=== PATIENT | male | born 1960 | race Caucasian/White ===

== ENCOUNTER 2019-02-09 19:09 | Emergency (ER) | payer MEDICAID, MEDICARE ==
[~2019-02-09] VITALS: Ht 185.4 cm; Wt 310.0 kg
[~2019-02-09 19:09] MED LIST: ESCI10TA PO; INSU100V36 SQ; LANTUS SUBCUT; LISI-600 PO; SERT25TA PO
[2019-02-09] MEDS ORDERED: normal saline 1000ML IV soln IVB ONE (19:15)
[2019-02-09 19:47] LABS: BASOPHILS # (AUTO) 0.1 X10'3 (0-0.2); BASOPHILS % (AUTO) 0.7 % (0-1); EOSINOPHILS # (AUTO) 0.4 X10'3 (0-0.9); EOSINOPHILS % (AUTO) 3.5 % (0-6); HEMATOCRIT 38.7 % (42.0-52.0); HEMOGLOBIN 12.9 g/dl (14.0-17.9); LYMPHOCYTES # (AUTO) 1.3 X10'3 (1.1-4.8); LYMPHOCYTES % (AUTO) 11.4 % (21-51); MEAN CORPUSCULAR HEMOGLOBIN 32.2 PG (27.0-31.0); MEAN CORPUSCULAR HGB CONC 33.3 g/dL (33.0-36.5); MEAN CORPUSCULAR VOLUME 96.7 FL (78-98); MEAN PLATELET VOLUME 7.5 FL (7.4-10.4); MONOCYTES # (AUTO) 0.9 X10'3 (0-0.9); NEUTROPHILS # (AUTO) 8.9 X10'3 (1.8-7.7); NEUTROPHILS % (AUTO) 76.4 % (42-75); PLATELET COUNT 257 X10'3 (140-440); RED BLOOD COUNT 4.01 X10'6 (4.70-6.10); RED CELL DISTRIBUTION WIDTH 14.9 % (11.5-14.5); WHITE BLOOD COUNT 11.7 X10'3 (4.5-11.0)
[2019-02-09 19:56] LABS: ALANINE AMINOTRANSFERASE 32 U/L (12-78); ALBUMIN 3.8 G/DL (3.4-5.0); ALBUMIN/GLOBULIN RATIO 0.7 (1.1-1.5); ALKALINE PHOSPHATASE 66 IU/L (46-116); ANION GAP 9 (8-16); ASPARTATE AMINO TRANSFERASE 25 U/L (10-37); BILIRUBIN,TOTAL 0.5 MG/DL (0.1-1.0); BLOOD UREA NITROGEN 28 MG/DL (7-18); CALCIUM 8.5 MG/DL (8.5-10.1); CHLORIDE 103 MMOL/L (99-107); GLUCOSE 72 MG/DL (70-104); MAGNESIUM 2.1 MG/DL (1.5-2.4); PHOSPHORUS 3.4 MG/DL (2.3-4.5); POTASSIUM 3.3 MMOL/L (3.5-5.1); SODIUM 137 MMOL/L (135-145); TOTAL CARBON DIOXIDE 25.3 MMOL/L (24-32); TOTAL PROTEIN 9.1 G/DL (6.4-8.2); eGFR 35 ML/MIN
--- NOTE | 2019-02-09 20:38 | NUR ---
FOR [facility] CALL DOUG MADDOX AT [phone]
[2019-02-09 21:18] VITALS: BP 120/52
[2019-02-09] MEDS ORDERED: POTA20TA19 PO (21:38)
== END 2019-02-09 22:15 | disposition home or self-care (01) ==
LOC: ER 19:09
DX: E11.649 Type 2 diabetes mellitus with hypoglycemia without coma (principal); E87.6 Hypokalemia; E86.0 Dehydration; Z98.890 Other specified postprocedural states; Z89.511 Acquired absence of right leg below knee; Z79.899 Other long term (current) drug therapy; Z79.4 Long term (current) use of insulin
CPT/HCPCS: 36415; 80053; 82948; 83735; 84100; 85025; 93005; 99284; J7030; 96360

== ENCOUNTER 2019-03-30 14:27 | Inpatient (IN) | payer MEDICARE, MEDICAID ==
[~2019-03-30] VITALS: Ht 185.4 cm; Wt 157.0 kg
--- NOTE | 2019-03-30 15:47 | NUR ---
RADIOLOGY AT BEDSIDE
[2019-03-30 16:03] LABS: BASOPHILS # (AUTO) 0.2 X10'3 (0-0.2); BASOPHILS % (AUTO) 0.9 % (0-1); EOSINOPHILS # (AUTO) 0.3 X10'3 (0-0.9); EOSINOPHILS % (AUTO) 1.8 % (0-6); HEMATOCRIT 32.3 % (42.0-52.0); HEMOGLOBIN 11.2 g/dl (14.0-17.9); LYMPHOCYTES # (AUTO) 1.3 X10'3 (1.1-4.8); MEAN CORPUSCULAR HEMOGLOBIN 32.4 PG (27.0-31.0); MEAN CORPUSCULAR HGB CONC 34.6 g/dL (33.0-36.5); MEAN CORPUSCULAR VOLUME 93.5 FL (78-98); MEAN PLATELET VOLUME 6.7 FL (7.4-10.4); MONOCYTES % (AUTO) 5.5 % (2-12); NEUTROPHILS # (AUTO) 15.5 X10'3 (1.8-7.7); NEUTROPHILS % (AUTO) 84.8 % (42-75); PLATELET COUNT 508 X10'3 (140-440); RED BLOOD COUNT 3.46 X10'6 (4.70-6.10); RED CELL DISTRIBUTION WIDTH 14.5 % (11.5-14.5); WHITE BLOOD COUNT 18.3 X10'3 (4.5-11.0)
[2019-03-30 16:12] LABS: ANION GAP 8 (8-16); BLOOD UREA NITROGEN 34 MG/DL (7-18); BUN/CREATININE RATIO 14.3 (5.4-32.0); CALCIUM 9.4 MG/DL (8.5-10.1); CHLORIDE 94 MMOL/L (99-107); CREATININE 2.38 MG/DL (0.60-1.10); GLUCOSE 127 MG/DL (70-104); POTASSIUM 4.2 MMOL/L (3.5-5.1); SODIUM 131 MMOL/L (135-145); TOTAL CARBON DIOXIDE 28.8 MMOL/L (24-32); eGFR 28 ML/MIN
[2019-03-30] MEDS ORDERED: clindamycin 600mg/D5W 50ml 50 ML IV ONE (16:30)
[2019-03-30] MEDS: normal saline 1000ml 1,000 ML IV SCH ×2 (17:12→23:03)
[2019-03-30] MEDS ORDERED: HYDROcodone/acetaminophen 5mg/325mg tablet PO PRN (17:15)
[2019-03-30] MEDS ORDERED: magnesium 2GM in 50ml NS 50 ML IV PRN (17:15)
[2019-03-30] MEDS ORDERED: HYDROcodone/acetaminophen 10/325mg tab PO PRN (17:15)
[2019-03-30] MEDS ORDERED: magnesium 4gm in 100ml NS 100 ML IV PRN (17:15)
[2019-03-30] MEDS ORDERED: dextrose ORAL solution 15 GM/59 ML bottle PO PRN ×2 (17:15)
[2019-03-30] MEDS ORDERED: potassium CL 10mEq/100ml bag 100 ML IV PRN ×2 (17:15)
[2019-03-30] MEDS ORDERED: glucagon, human recombinant 1mg kit SUBCUT PRN (17:15)
[2019-03-30] MEDS ORDERED: MESSAGE TO PHARMACY PO ONE (17:15)
[2019-03-30] MEDS ORDERED: ondansetron/PF 4mg/2ml inj IV PRN (17:15)
[2019-03-30] MEDS ORDERED: acetaminophen 325mg tablet PO PRN ×2 (17:15)
[2019-03-30] MEDS ORDERED: dextrose 50%-water 50ml dispensing syringe IV PRN ×2 (17:15)
[2019-03-30] MEDS ORDERED: magnesium Cl slow-release 64mg tablet PO PRN (17:15)
[2019-03-30] MEDS ORDERED: potassium Cl 20 mEq SR tablet PO PRN ×2 (17:15)
[2019-03-30] MEDS ORDERED: morphine 2 MG/ML inj. syringe IV PRN ×2 (17:15)
[2019-03-30] MEDS ORDERED: acetylcysteine 200 MG/ml 4ml vial PO ONE (17:45)
--- NOTE | 2019-03-30 18:00 | NUR ---
Spoke to Dr. Sue to clarify that she wants to keep IV fluid rate at 100mL/hr with pt's CHF history and Lasix home medication. Dr. Sue states that she does want the pt on the full amount of ordered IV fluid rate.
[2019-03-30] MEDS ORDERED: LABE100T5 PO (18:11)
[2019-03-30] MEDS ORDERED: MAGN500C16 PO (18:11)
[2019-03-30] MEDS ORDERED: HYDR-4069 PO (18:11)
[2019-03-30] MEDS ORDERED: MULT-933 PO (18:11)
[2019-03-30] MEDS ORDERED: GABA-532 PO (18:11)
[2019-03-30] MEDS ORDERED: RIVA20TA PO (18:11)
[2019-03-30] MEDS ORDERED: FLO0.4C PO (18:11)
[2019-03-30] MEDS ORDERED: AMLO2.5T2 PO (18:11)
[2019-03-30] MEDS ORDERED: ROPI1TAB4 PO (18:11)
[2019-03-30] MEDS ORDERED: MONT10TA21 PO (18:11)
[2019-03-30] MEDS ORDERED: BUPR150T8 PO (18:11)
[2019-03-30] MEDS ORDERED: POTA10TA10 PO (18:11)
[2019-03-30] MEDS ORDERED: PRAZ1CAP5 PO (18:11)
[2019-03-30] MEDS ORDERED: FURO80TA3 PO (18:11)
[2019-03-30 18:15] LABS: CLARITY,URINE CLEAR (Clear); COLOR,URINE YELLOW (Yellow); GLUCOSE, URINE NEGATIVE (Neg); KETONES,URINE NEGATIVE (Neg); LEUKOCYTE ESTERASE ,URINE NEGATIVE (Neg); NITRITES, URINE NEGATIVE (Neg); OCCULT BLOOD,URINE MODERATE (Neg); PROTEIN,URINE 30 mg/dl (Neg); UROBILINOGEN,URINE 0.2 E.U/dL (0.2-1.0)
[2019-03-30] MEDS ORDERED: LANTUS SQ ×2 (18:21)
[2019-03-30] MEDS ORDERED: INSU100C10 SQ (18:21)
[2019-03-30 18:22] LABS: C-REACTIVE PROTEIN 2.82 MG/DL (0.0-0.5)
[2019-03-30 18:22] LABS: UA COLLECTION TYPE URINAL
[2019-03-30 18:23] LABS: BACTERIA,URINE NONE SEEN /HPF (Neg); SQUAMOUS EPITHELIAL CELL,UR FEW /LPF (FEW); WBC,URINE NONE SEEN /HPF (0-4)
[2019-03-30 18:50] VITALS: BP 141/75
[2019-03-30] MEDS: buPROPion SR 150mg tablet PO SCH (20:00)
[2019-03-30] MEDS: docusate sod 100mg capsule PO SCH (20:00)
[2019-03-30] MEDS: clindamycin 600mg/D5W 50ml 50 ML IV SCH (20:00)
[2019-03-30] MEDS ORDERED: heparin, porcine 5000 units/ml vial SQ SCH (20:00)
[2019-03-30] MEDS ORDERED: pneumococcal 23-VAL P-sac vacc 25 mcg/0.5ml vial IMVAC ONE (20:05)
[2019-03-30] MEDS ORDERED: FLU VACC QS2019-20 36MOS UP/PF 60 MCG/0.5 ML SYRINGE IMVAC ONE (20:10)
[2019-03-30] MEDS: hydrALAZINE 25 MG tablet PO SCH (20:44)
[2019-03-30] MEDS: ciprofloxacin lact 400MG/200ML 200 ML IV SCH (20:57)
[2019-03-30] MEDS ORDERED: temazepam 15mg capsule PO PRN (21:00)
[2019-03-30 22:00] VITALS: BP 132/73
[2019-03-30] MEDS: ROPINIRole 1mg tablet PO SCH (22:08)
[2019-03-30] MEDS: gabapentin 300mg capsule PO SCH (22:08)
[2019-03-30] MEDS: montelukast 10mg tablet PO SCH (22:09)
[2019-03-30] MEDS: labetalol 100mg tablet PO SCH (22:09)
[2019-03-30] MEDS: tamsulosin 0.4mg capsule PO SCH (22:15)
[2019-03-30] MEDS: insulin Lispro (HumaLOG) vial - multi-dose SQ SCH (22:31)
[2019-03-30] MEDS: insulin glargine (Lantus) pen - multi-dose SQ SCH (22:38)
[2019-03-31] MEDS: rivaroxaban 20mg tablet PO SCH ×2 (00:09→20:30)
[2019-03-31 03:00] VITALS: BP 143/72
[2019-03-31] MEDS: clindamycin 600mg/D5W 50ml 50 ML IV SCH ×4 (03:14→20:27)
[2019-03-31] MEDS: hydrALAZINE 25 MG tablet PO SCH ×4 (03:20→20:29)
[2019-03-31 06:15] LABS: BASOPHILS # (AUTO) 0.1 X10'3 (0-0.2); BASOPHILS % (AUTO) 1.2 % (0-1); EOSINOPHILS # (AUTO) 0.3 X10'3 (0-0.9); HEMATOCRIT 30.5 % (42.0-52.0); HEMOGLOBIN 10.8 g/dl (14.0-17.9); LYMPHOCYTES # (AUTO) 1.3 X10'3 (1.1-4.8); LYMPHOCYTES % (AUTO) 11.3 % (21-51); MEAN CORPUSCULAR HEMOGLOBIN 32.8 PG (27.0-31.0); MEAN CORPUSCULAR HGB CONC 35.6 g/dL (33.0-36.5); MEAN PLATELET VOLUME 6.7 FL (7.4-10.4); MONOCYTES % (AUTO) 8.7 % (2-12); NEUTROPHILS # (AUTO) 8.7 X10'3 (1.8-7.7); NEUTROPHILS % (AUTO) 75.8 % (42-75); PLATELET COUNT 474 X10'3 (140-440); RED BLOOD COUNT 3.31 X10'6 (4.70-6.10); RED CELL DISTRIBUTION WIDTH 14.6 % (11.5-14.5); WHITE BLOOD COUNT 11.4 X10'3 (4.5-11.0)
[2019-03-31 06:17] LABS: ALBUMIN 2.8 G/DL (3.4-5.0); ANION GAP 9 (8-16); BLOOD UREA NITROGEN 33 MG/DL (7-18); BUN/CREATININE RATIO 14.7 (5.4-32.0); CALCIUM 9.3 MG/DL (8.5-10.1); CHLORIDE 96 MMOL/L (99-107); CREATININE 2.25 MG/DL (0.60-1.10); GLUCOSE 178 MG/DL (70-104); MAGNESIUM 2.2 MG/DL (1.5-2.4); SODIUM 133 MMOL/L (135-145); TOTAL CARBON DIOXIDE 27.8 MMOL/L (24-32); eGFR 30 ML/MIN
--- NOTE | 2019-03-31 06:34 | NUR ---
Patient in room [facility] 4015. I have received report from [place] and had the opportunity to ask questions and assume patient care.
[2019-03-31] MEDS: normal saline 1000ml 1,000 ML IV SCH ×5 (07:41→23:07)
[2019-03-31] MEDS: K and/or MAG REPLACEMENT MC SCH (08:00)
[2019-03-31] MEDS: docusate sod 100mg capsule PO SCH ×2 (08:00→20:30)
--- NOTE | 2019-03-31 08:45 | NUR ---
Patient in room [facility]TH[facility] 4015. I have received report from RODERICK ALDRICH and had the opportunity to ask questions and assume patient care.
[2019-03-31] MEDS: insulin Lispro (HumaLOG) vial - multi-dose SQ SCH ×3 (08:58→18:34)
[2019-03-31] MEDS: magnesium oxide 400mg tablet PO SCH ×2 (09:20)
[2019-03-31] MEDS: prazosin 1mg capsule PO SCH (09:21)
[2019-03-31] MEDS: gabapentin 300mg capsule PO SCH ×3 (09:22→20:30)
[2019-03-31] MEDS: amLODIPine 5mg tablet PO SCH (09:23)
[2019-03-31] MEDS: ROPINIRole 1mg tablet PO SCH ×3 (09:24→20:29)
[2019-03-31] MEDS: multivitamins, therapeutics tablet PO SCH (09:24)
[2019-03-31] MEDS: labetalol 100mg tablet PO SCH ×3 (09:27→20:29)
[2019-03-31] MEDS: buPROPion SR 150mg tablet PO SCH ×2 (09:28→20:29)
[2019-03-31] MEDS: ciprofloxacin lact 400MG/200ML 200 ML IV SCH ×2 (09:52→20:34)
[2019-03-31 10:00] VITALS: BP 162/85
[2019-03-31 11:23] VITALS: BP_SYST 135; BP_SYST 151; BP_DIAS 73; BP_DIAS 75
--- NOTE | 2019-03-31 12:04 | NUR ---
Student Medication Administration: For this medication-pass time frame 9180-7761, all medications were reviewed, administered and documented per hospital policy by Salina Lang. Student documentation:I have reviewed and agree with all interventions, assessments performed and documented by Salina Lang.
--- NOTE | 2019-03-31 12:26 | NUR ---
Problems reprioritized. Patient report given, questions answered & plan of care reviewed with Dayana .
--- NOTE | 2019-03-31 12:29 | NUR ---
DM Consult: A1C 7.5 and carb controlled "keto" diet order in place. RD d/w RN to change to only carb controlled given keto is not an available diet option and it was also not put in by . Pt admit w/ L foot cellulitis and sepsis PO 100% carb controlled diet; double eggs and proteins w/ meals added given pt size and protein needs w/ DX. Pt seen by RD for written/verbal DM ed w/ RD contact information provided. Pt A1C down from 12.5 last February. Pt declined verbal DM ed review by RD. Pt reports disliking diet sodas and Japanese dressing and would like crystal light BIDLD; dietary notified. Wt hx fluctuates prior admits; pt states scaled wt one week ago was 348 pounds so current wt most accurate. Pt reports takes set dose humalog 15-20 units w/ meals and basaglar 45 untis AM and HS. Will continue to monitor for additional protein needs. Rec: 1. continue carb controlled diet 2. double proteins TIDWM 3. wt per rx Addendum: 03/31/19 at [address] Amended: Links added.
[2019-03-31 18:00] VITALS: BP 140/79
--- NOTE | 2019-03-31 18:30 | NUR ---
Problems reprioritized. Patient report given, questions answered & plan of care reviewed with RICARDO ALDRICH.
[2019-03-31] MEDS: tamsulosin 0.4mg capsule PO SCH (20:29)
[2019-03-31] MEDS: montelukast 10mg tablet PO SCH (20:30)
[2019-03-31] MEDS: lactobacillus rhamnosus 10,000 MMU CELLS/CAPSULE PO SCH (20:30)
[2019-03-31] MEDS: insulin glargine (Lantus) pen - multi-dose SQ SCH (20:46)
[2019-03-31 22:00] VITALS: BP 145/78
[2019-04-01] VITALS (7 sets, daily range): BP systolic 130–176; BP diastolic 70–79
[2019-04-01] MEDS: normal saline 1000ml 1,000 ML IV SCH ×5 (00:35→20:17)
[2019-04-01] MEDS: clindamycin 600mg/D5W 50ml 50 ML IV SCH ×4 (01:57→20:13)
[2019-04-01] MEDS: hydrALAZINE 25 MG tablet PO SCH ×4 (01:57→20:16)
--- NOTE | 2019-04-01 02:33 | NUR ---
Pt is sitting at bedside, sleeping sitting up. will not get back in bed because he says that the IV tubing gets caught in the bedrail. RN offered to move the IV pole to better position, he still refused. RN offered to get him settled in a recliner, he refused. he wants his bedrail down, which is a safety issue. He will not compromise.
--- NOTE | 2019-04-01 03:29 | NUR ---
Pt is sleeping soundly on his back in the bed at this time.
[2019-04-01 05:44] LABS: BASOPHILS # (AUTO) 0.1 X10'3 (0-0.2); BASOPHILS % (AUTO) 1.1 % (0-1); EOSINOPHILS # (AUTO) 0.2 X10'3 (0-0.9); EOSINOPHILS % (AUTO) 2.2 % (0-6); HEMATOCRIT 29.2 % (42.0-52.0); HEMOGLOBIN 10.3 g/dl (14.0-17.9); LYMPHOCYTES % (AUTO) 8.8 % (21-51); MEAN CORPUSCULAR HEMOGLOBIN 32.6 PG (27.0-31.0); MEAN CORPUSCULAR HGB CONC 35.3 g/dL (33.0-36.5); MEAN CORPUSCULAR VOLUME 92.4 FL (78-98); MEAN PLATELET VOLUME 6.8 FL (7.4-10.4); MONOCYTES # (AUTO) 0.8 X10'3 (0-0.9); MONOCYTES % (AUTO) 7.2 % (2-12); NEUTROPHILS % (AUTO) 80.7 % (42-75); PLATELET COUNT 433 X10'3 (140-440); RED BLOOD COUNT 3.16 X10'6 (4.70-6.10); RED CELL DISTRIBUTION WIDTH 14.5 % (11.5-14.5); WHITE BLOOD COUNT 11.1 X10'3 (4.5-11.0)
[2019-04-01 06:02] LABS: ALBUMIN 2.7 G/DL (3.4-5.0); ANION GAP 6 (8-16); BLOOD UREA NITROGEN 30 MG/DL (7-18); CALCIUM 9.1 MG/DL (8.5-10.1); CHLORIDE 99 MMOL/L (99-107); CREATININE 2.14 MG/DL (0.60-1.10); GLUCOSE 152 MG/DL (70-104); MAGNESIUM 2.1 MG/DL (1.5-2.4); POTASSIUM 4.1 MMOL/L (3.5-5.1); SODIUM 132 MMOL/L (135-145); TOTAL CARBON DIOXIDE 26.9 MMOL/L (24-32); eGFR 32 ML/MIN
--- NOTE | 2019-04-01 06:35 | NUR ---
REPORT GIVEN TO VALDEMAR CLIFTON.
--- NOTE | 2019-04-01 06:39 | NUR ---
Patient in room [facility]TH[facility] 4015. I have received report from Shameka and had the opportunity to ask questions and assume patient care.
[2019-04-01] MEDS: docusate sod 100mg capsule PO SCH ×2 (08:00→20:00)
[2019-04-01] MEDS: K and/or MAG REPLACEMENT MC SCH (08:00)
[2019-04-01] MEDS: insulin Lispro (HumaLOG) vial - multi-dose SQ SCH ×3 (08:44→18:49)
[2019-04-01] MEDS: lactobacillus rhamnosus 10,000 MMU CELLS/CAPSULE PO SCH ×2 (08:52→20:16)
[2019-04-01] MEDS: prazosin 1mg capsule PO SCH (08:53)
[2019-04-01] MEDS: magnesium oxide 400mg tablet PO SCH (08:53)
[2019-04-01] MEDS: gabapentin 300mg capsule PO SCH ×3 (08:54→20:15)
[2019-04-01] MEDS: amLODIPine 5mg tablet PO SCH (08:55)
[2019-04-01] MEDS: multivitamins, therapeutics tablet PO SCH (08:56)
[2019-04-01] MEDS: ROPINIRole 1mg tablet PO SCH ×3 (08:56→20:16)
[2019-04-01] MEDS: buPROPion SR 150mg tablet PO SCH ×2 (08:57→20:16)
[2019-04-01] MEDS: labetalol 100mg tablet PO SCH ×3 (08:57→20:15)
[2019-04-01] MEDS: ciprofloxacin lact 400MG/200ML 200 ML IV SCH ×2 (10:20→20:55)
--- NOTE | 2019-04-01 12:33 | NUR ---
Student Medication Administration:For this medication-pass time frame 5403-1345, all medications were reviewed, administered and documented per hospital policy by Nasima Lang. Student documentation:I have reviewed and agree with all interventions, assessments performed and documented by Salina Lang.
--- NOTE | 2019-04-01 12:39 | NUR ---
Problems reprioritized. Patient report given, questions answered & plan of care reviewed with Shameka.
[2019-04-01] MEDS: montelukast 10mg tablet PO SCH (20:15)
[2019-04-01] MEDS: tamsulosin 0.4mg capsule PO SCH (20:15)
[2019-04-01] MEDS: rivaroxaban 20mg tablet PO SCH (20:16)
[2019-04-01] MEDS: insulin glargine (Lantus) pen - multi-dose SQ SCH (20:54)
[2019-04-02] MEDS: hydrALAZINE 25 MG tablet PO SCH ×3 (01:57→13:28)
[2019-04-02] MEDS: clindamycin 600mg/D5W 50ml 50 ML IV SCH ×3 (01:58→13:28)
[2019-04-02] MEDS: normal saline 1000ml 1,000 ML IV SCH ×4 (05:07→16:35)
[2019-04-02 06:00] VITALS: BP 145/79
--- NOTE | 2019-04-02 06:20 | NUR ---
Patient in room [facility]TH[facility] 4015. I have received report from VENTURA ALDRICH and had the opportunity to ask questions and assume patient care.
[2019-04-02 06:23] LABS: BASOPHILS # (AUTO) 0.1 X10'3 (0-0.2); BASOPHILS % (AUTO) 1.3 % (0-1); EOSINOPHILS # (AUTO) 0.3 X10'3 (0-0.9); EOSINOPHILS % (AUTO) 2.8 % (0-6); HEMATOCRIT 30.5 % (42.0-52.0); HEMOGLOBIN 10.5 g/dl (14.0-17.9); LYMPHOCYTES # (AUTO) 1.2 X10'3 (1.1-4.8); LYMPHOCYTES % (AUTO) 12.6 % (21-51); MEAN CORPUSCULAR HEMOGLOBIN 32.1 PG (27.0-31.0); MEAN CORPUSCULAR HGB CONC 34.4 g/dL (33.0-36.5); MEAN CORPUSCULAR VOLUME 93.1 FL (78-98); MEAN PLATELET VOLUME 6.9 FL (7.4-10.4); MONOCYTES # (AUTO) 0.8 X10'3 (0-0.9); MONOCYTES % (AUTO) 8.7 % (2-12); NEUTROPHILS # (AUTO) 6.9 X10'3 (1.8-7.7); NEUTROPHILS % (AUTO) 74.6 % (42-75); PLATELET COUNT 445 X10'3 (140-440); RED BLOOD COUNT 3.28 X10'6 (4.70-6.10); RED CELL DISTRIBUTION WIDTH 14.9 % (11.5-14.5); WHITE BLOOD COUNT 9.3 X10'3 (4.5-11.0)
[2019-04-02 06:29] LABS: ALBUMIN 2.8 G/DL (3.4-5.0); ANION GAP 10 (8-16); BLOOD UREA NITROGEN 28 MG/DL (7-18); BUN/CREATININE RATIO 13.6 (5.4-32.0); CALCIUM 8.9 MG/DL (8.5-10.1); CHLORIDE 100 MMOL/L (99-107); CREATININE 2.06 MG/DL (0.60-1.10); GLUCOSE 152 MG/DL (70-104); SODIUM 136 MMOL/L (135-145); TOTAL CARBON DIOXIDE 26.1 MMOL/L (24-32); eGFR 33 ML/MIN
--- NOTE | 2019-04-02 06:30 | NUR ---
Patient in room [facility]TH[facility] 4015. I have received report from lupe ALDRICH and had the opportunity to ask questions and assume patient care.
[2019-04-02 07:04] VITALS: BP 130/74
[2019-04-02] MEDS: K and/or MAG REPLACEMENT MC SCH (07:19)
[2019-04-02] MEDS: insulin Lispro (HumaLOG) vial - multi-dose SQ SCH ×2 (08:55→13:32)
[2019-04-02] MEDS: ciprofloxacin lact 400MG/200ML 200 ML IV SCH (08:58)
[2019-04-02] MEDS: gabapentin 300mg capsule PO SCH ×2 (09:04→13:28)
[2019-04-02] MEDS: docusate sod 100mg capsule PO SCH (09:05)
[2019-04-02] MEDS: buPROPion SR 150mg tablet PO SCH (09:05)
[2019-04-02] MEDS: lactobacillus rhamnosus 10,000 MMU CELLS/CAPSULE PO SCH (09:05)
[2019-04-02] MEDS: ROPINIRole 1mg tablet PO SCH ×2 (09:06→13:28)
[2019-04-02] MEDS: amLODIPine 5mg tablet PO SCH (09:06)
[2019-04-02] MEDS: labetalol 100mg tablet PO SCH ×2 (09:06→13:28)
[2019-04-02] MEDS: multivitamins, therapeutics tablet PO SCH (09:06)
[2019-04-02] MEDS: prazosin 1mg capsule PO SCH (09:07)
[2019-04-02] MEDS: magnesium oxide 400mg tablet PO SCH (09:07)
[2019-04-02 10:00] VITALS: BP 148/68
[2019-04-02] MEDS ORDERED: CLIN-96 PO (10:32)
[2019-04-02] MEDS ORDERED: CIPR-260 PO (10:32)
--- NOTE | 2019-04-02 11:31 | NUR ---
Student documentation: I have reviewed all interventions, assessments performed and documented by Jamel Barrios. Student Medication Administration: For this medication-pass time frame, all medication were reviewed, dispensed, administered and documented per hospital policy by Jamel Barrios.
--- NOTE | 2019-04-02 16:40 | NUR ---
PATIENT DC HOME SAFELY WITH A CAB RIDE. ALL BELONGINGS IN POSSESSION. PATIENT VERBALIZES UNDERSTANDING OF DC INSTRUCTIONS. HOME MEDICATIONS WERE RETURNED TO PATIENT UPON DC.
== END 2019-04-02 16:40 | disposition home or self-care (01) | DRG 872 ==
LOC: ER 14:27 → ED HOLD 18:05 → EDBEDREQ 18:29 → ORTHO 4S 18:50
PROVIDERS: ADMIT Internal Medicine; ATTEND Family Medicine
PROC: 3E02340 Introduction of Influenza Vaccine into Muscle, Percutaneous Approach (ICD-10-PCS; principal; 2019-03-30)
PROC: 3E0234Z Introduction of Serum, Toxoid and Vaccine into Muscle, Percutaneous Approach (ICD-10-PCS; 2019-03-30)
DX: A41.9 Sepsis, unspecified organism (principal); L03.116 Cellulitis of left lower limb; N17.9 Acute kidney failure, unspecified; N18.4 Chronic kidney disease, stage 4 (severe); E87.1 Hypo-osmolality and hyponatremia; I48.20 Chronic atrial fibrillation, unspecified; Z68.42 Body mass index [BMI] 45.0-49.9, adult; I12.9 Hypertensive chronic kidney disease with stage 1 through stage 4 chronic kidney disease, or unspecified chronic kidney disease; D63.8 Anemia in other chronic diseases classified elsewhere; E11.22 Type 2 diabetes mellitus with diabetic chronic kidney disease; E11.621 Type 2 diabetes mellitus with foot ulcer; L97.529 Non-pressure chronic ulcer of other part of left foot with unspecified severity; E11.42 Type 2 diabetes mellitus with diabetic polyneuropathy; E66.9 Obesity, unspecified; R59.0 Localized enlarged lymph nodes; F32.9 Major depressive disorder, single episode, unspecified; J44.9 Chronic obstructive pulmonary disease, unspecified; N40.0 Benign prostatic hyperplasia without lower urinary tract symptoms; Z79.4 Long term (current) use of insulin; Z86.14 Personal history of Methicillin resistant Staphylococcus aureus infection; Z88.0 Allergy status to penicillin; Z88.1 Allergy status to other antibiotic agents; Z89.511 Acquired absence of right leg below knee; Z89.411 Acquired absence of right great toe
CPT/HCPCS: 36415; 73590; 73630; 80048; 81001; 82948; 83036; 83605; 83735; 84145; 85025; 85651; 86140; 87040; 87081; 93005; 93922; 93926; 96365; 97116; 97161; 97530; 99285; G0378; J0744; J1644; J1815; J3490; J7030; Q2037

== ENCOUNTER 2019-05-27 20:08 | Emergency (ER) | payer MEDICARE, MEDICAID ==
[~2019-05-27] VITALS: Ht 185.4 cm; Wt 155.9 kg
[~2019-05-27 20:08] MED LIST changes: +AMLO2.5T2 PO; +BUPR150T8 PO; +CIPR-260 PO; +CLIN-90 PO; -ESCI10TA PO; +FLO0.4C PO; +FURO80TA3 PO; +GABA-532 PO; +HYDR-4069 PO; +INSU100C10 SQ; -INSU100V36 SQ; +LABE100T5 PO; +LANTUS SQ; -LANTUS SUBCUT; -LISI-600 PO; +MAGN500C16 PO; +MONT10TA21 PO; +MULT-933 PO; +POTA10TA10 PO; +PRAZ1CAP5 PO; +RIVA20TA PO; +ROPI1TAB4 PO; -SERT25TA PO
[2019-05-27] MEDS ORDERED: vancomycin/NS 1 GM ADD-VANTAGE 250 ML IV ONE (21:25)
[2019-05-27] MEDS ORDERED: levoFLOXACIN-Levaquin 500mg/D5 100 ML IV ONE (21:30)
[2019-05-27 22:01] LABS: BASOPHILS # (AUTO) 0.1 X10'3 (0-0.2); BASOPHILS % (AUTO) 1.2 % (0-1); EOSINOPHILS # (AUTO) 0.3 X10'3 (0-0.9); EOSINOPHILS % (AUTO) 3.4 % (0-6); HEMATOCRIT 31.9 % (42.0-52.0); HEMOGLOBIN 11.2 g/dl (14.0-17.9); LYMPHOCYTES # (AUTO) 1.7 X10'3 (1.1-4.8); MEAN CORPUSCULAR HEMOGLOBIN 32.8 PG (27.0-31.0); MEAN CORPUSCULAR HGB CONC 35.1 g/dL (33.0-36.5); MEAN CORPUSCULAR VOLUME 93.4 FL (78-98); MEAN PLATELET VOLUME 7.3 FL (7.4-10.4); MONOCYTES # (AUTO) 0.8 X10'3 (0-0.9); MONOCYTES % (AUTO) 8.5 % (2-12); NEUTROPHILS # (AUTO) 6.8 X10'3 (1.8-7.7); NEUTROPHILS % (AUTO) 69.9 % (42-75); PLATELET COUNT 346 X10'3 (140-440); RED BLOOD COUNT 3.41 X10'6 (4.70-6.10); RED CELL DISTRIBUTION WIDTH 15.8 % (11.5-14.5); WHITE BLOOD COUNT 9.7 X10'3 (4.5-11.0)
[2019-05-27 22:09] LABS: ALANINE AMINOTRANSFERASE 28 U/L (12-78); ALBUMIN 3.2 G/DL (3.4-5.0); ALBUMIN/GLOBULIN RATIO 0.6 (1.1-1.5); ALKALINE PHOSPHATASE 67 IU/L (46-116); ANION GAP 7 (8-16); ASPARTATE AMINO TRANSFERASE 21 U/L (10-37); BILIRUBIN,TOTAL 0.4 MG/DL (0.1-1.0); BLOOD UREA NITROGEN 27 MG/DL (7-18); BUN/CREATININE RATIO 13.3 (5.4-32.0); CALCIUM 8.6 MG/DL (8.5-10.1); CHLORIDE 100 MMOL/L (99-107); CREATININE 2.03 MG/DL (0.60-1.10); GLUCOSE 146 MG/DL (70-104); POTASSIUM 3.9 MMOL/L (3.5-5.1); SODIUM 134 MMOL/L (135-145); TOTAL CARBON DIOXIDE 27.1 MMOL/L (24-32); TOTAL PROTEIN 8.8 G/DL (6.4-8.2); eGFR 34 ML/MIN
[2019-05-27] MEDS ORDERED: CEPH500C5 PO (22:27)
[2019-05-27] MEDS ORDERED: SULF1TAB49 PO (22:27)
[2019-05-27 22:56] VITALS: BP 148/53
== END 2019-05-27 22:58 | disposition home or self-care (01) ==
LOC: ER 20:09
DX: L03.116 Cellulitis of left lower limb (principal); I48.91 Unspecified atrial fibrillation; E11.42 Type 2 diabetes mellitus with diabetic polyneuropathy; Z98.890 Other specified postprocedural states; Z89.511 Acquired absence of right leg below knee; Z88.0 Allergy status to penicillin; Z88.1 Allergy status to other antibiotic agents; Z79.899 Other long term (current) drug therapy; Z79.4 Long term (current) use of insulin
CPT/HCPCS: 36415; 80053; 83605; 84145; 85025; 87040; 96365; 99284; J1956

== ENCOUNTER 2019-07-09 08:45 | Day surgery (SDC) | payer MEDICARE, MEDICAID ==
[~2019-07-09 08:45] MED LIST changes: +CEPH500C5 PO
[2019-07-09] MEDS ORDERED: LIDOcaine 2% 5ml jelly ONE (09:56)
== END 2019-07-09 11:28 | disposition home or self-care (01) ==
LOC: WOUND CARE 08:45
PROVIDERS: ATTEND Surgery
DX: E11.621 Type 2 diabetes mellitus with foot ulcer (principal); L97.521 Non-pressure chronic ulcer of other part of left foot limited to breakdown of skin; E11.65 Type 2 diabetes mellitus with hyperglycemia; E11.42 Type 2 diabetes mellitus with diabetic polyneuropathy; E11.22 Type 2 diabetes mellitus with diabetic chronic kidney disease; I13.0 Hypertensive heart and chronic kidney disease with heart failure and stage 1 through stage 4 chronic kidney disease, or unspecified chronic kidney disease; N18.9 Chronic kidney disease, unspecified; I50.9 Heart failure, unspecified; I87.2 Venous insufficiency (chronic) (peripheral); I48.91 Unspecified atrial fibrillation; F32.9 Major depressive disorder, single episode, unspecified; Z86.14 Personal history of Methicillin resistant Staphylococcus aureus infection; Z89.511 Acquired absence of right leg below knee; Z79.4 Long term (current) use of insulin; Z79.899 Other long term (current) drug therapy; Z98.890 Other specified postprocedural states
CPT/HCPCS: 36416; 82948; 97597; A6209; A4663; A6154; A6446

== ENCOUNTER 2019-07-17 10:00 | Day surgery (SDC) | payer MEDICARE, MEDICAID ==
[~2019-07-17 10:00] MED LIST changes: -ROPI1TAB4 PO; +ROPI1TAB6 PO
[2019-07-17] MEDS ORDERED: LIDOcaine 2% 5ml jelly ONE (10:38)
== END 2019-07-17 11:10 | disposition home or self-care (01) ==
LOC: WOUND CARE 10:00
PROVIDERS: ATTEND Surgery
DX: E11.621 Type 2 diabetes mellitus with foot ulcer (principal); L97.521 Non-pressure chronic ulcer of other part of left foot limited to breakdown of skin; E11.65 Type 2 diabetes mellitus with hyperglycemia; E11.42 Type 2 diabetes mellitus with diabetic polyneuropathy; E11.22 Type 2 diabetes mellitus with diabetic chronic kidney disease; I13.0 Hypertensive heart and chronic kidney disease with heart failure and stage 1 through stage 4 chronic kidney disease, or unspecified chronic kidney disease; N18.9 Chronic kidney disease, unspecified; I50.9 Heart failure, unspecified; I87.2 Venous insufficiency (chronic) (peripheral); I48.91 Unspecified atrial fibrillation; F32.9 Major depressive disorder, single episode, unspecified; Z86.14 Personal history of Methicillin resistant Staphylococcus aureus infection; Z89.511 Acquired absence of right leg below knee; Z79.4 Long term (current) use of insulin; Z79.899 Other long term (current) drug therapy; Z98.890 Other specified postprocedural states
CPT/HCPCS: 36416; 82948; 97597

== ENCOUNTER 2019-07-24 10:12 | Day surgery (SDC) | payer MEDICARE, MEDICAID ==
[2019-07-24] MEDS ORDERED: LIDOcaine/PRILOcaine 5gm cream TP ONE (10:27)
[2019-07-24] MEDS ORDERED: LIDOcaine 2% 5ml jelly ONE (10:30)
== END 2019-07-24 11:18 | disposition home or self-care (01) ==
LOC: WOUND CARE 10:12
PROVIDERS: ATTEND Surgery
DX: E11.621 Type 2 diabetes mellitus with foot ulcer (principal); L97.523 Non-pressure chronic ulcer of other part of left foot with necrosis of muscle; E11.65 Type 2 diabetes mellitus with hyperglycemia; E11.42 Type 2 diabetes mellitus with diabetic polyneuropathy; E11.22 Type 2 diabetes mellitus with diabetic chronic kidney disease; I13.0 Hypertensive heart and chronic kidney disease with heart failure and stage 1 through stage 4 chronic kidney disease, or unspecified chronic kidney disease; N18.9 Chronic kidney disease, unspecified; I50.9 Heart failure, unspecified; I87.2 Venous insufficiency (chronic) (peripheral); I48.91 Unspecified atrial fibrillation; F32.9 Major depressive disorder, single episode, unspecified; Z86.14 Personal history of Methicillin resistant Staphylococcus aureus infection; Z89.511 Acquired absence of right leg below knee; Z79.4 Long term (current) use of insulin; Z79.899 Other long term (current) drug therapy; Z98.890 Other specified postprocedural states
CPT/HCPCS: 11043; 87070; 87075; 87077; 87102; 87186

== ENCOUNTER 2019-08-07 10:05 | Day surgery (SDC) | payer MEDICARE, MEDICAID ==
[2019-08-07] MEDS ORDERED: LIDOcaine 2% 5ml jelly ONE (11:09)
== END 2019-08-07 12:34 | disposition home or self-care (01) ==
LOC: WOUND CARE 10:05
PROVIDERS: ATTEND Surgery
DX: E11.621 Type 2 diabetes mellitus with foot ulcer (principal); L97.523 Non-pressure chronic ulcer of other part of left foot with necrosis of muscle; E11.65 Type 2 diabetes mellitus with hyperglycemia; E11.42 Type 2 diabetes mellitus with diabetic polyneuropathy; E11.22 Type 2 diabetes mellitus with diabetic chronic kidney disease; I13.0 Hypertensive heart and chronic kidney disease with heart failure and stage 1 through stage 4 chronic kidney disease, or unspecified chronic kidney disease; N18.9 Chronic kidney disease, unspecified; I50.9 Heart failure, unspecified; I87.2 Venous insufficiency (chronic) (peripheral); I48.91 Unspecified atrial fibrillation; Q82.0 Hereditary lymphedema; F32.9 Major depressive disorder, single episode, unspecified; Z86.14 Personal history of Methicillin resistant Staphylococcus aureus infection; Z89.511 Acquired absence of right leg below knee; Z79.4 Long term (current) use of insulin; Z79.899 Other long term (current) drug therapy; Z98.890 Other specified postprocedural states
CPT/HCPCS: 11042; 36416; 82948; 97605

== ENCOUNTER 2019-08-18 10:07 | Day surgery (SDC) | payer MEDICARE, MEDICAID ==
[~2019-08-18 10:07] MED LIST changes: -CLIN-90 PO; +CLIN-97 PO
[2019-08-18] MEDS ORDERED: LIDOcaine 2% 5ml jelly ONE (12:05)
== END 2019-08-18 14:07 | disposition home or self-care (01) ==
LOC: WOUND CARE 10:07
PROVIDERS: ATTEND Surgery
DX: E11.621 Type 2 diabetes mellitus with foot ulcer (principal); L97.523 Non-pressure chronic ulcer of other part of left foot with necrosis of muscle; E11.65 Type 2 diabetes mellitus with hyperglycemia; E11.42 Type 2 diabetes mellitus with diabetic polyneuropathy; E11.22 Type 2 diabetes mellitus with diabetic chronic kidney disease; I13.0 Hypertensive heart and chronic kidney disease with heart failure and stage 1 through stage 4 chronic kidney disease, or unspecified chronic kidney disease; N18.9 Chronic kidney disease, unspecified; I50.9 Heart failure, unspecified; I87.2 Venous insufficiency (chronic) (peripheral); I48.91 Unspecified atrial fibrillation; Q82.0 Hereditary lymphedema; F32.9 Major depressive disorder, single episode, unspecified; Z86.14 Personal history of Methicillin resistant Staphylococcus aureus infection; Z89.511 Acquired absence of right leg below knee; Z79.4 Long term (current) use of insulin; Z79.899 Other long term (current) drug therapy; Z98.890 Other specified postprocedural states
CPT/HCPCS: 11042; 36416; 82948; 97597; 97605; A6209; A4663; A6154; A6207; A6250; A6441

== ENCOUNTER 2019-08-26 01:13 | Inpatient (IN) | payer MEDICARE, MEDICAID ==
[~2019-08-26] VITALS: Ht 185.4 cm; Wt 151.7 kg
[2019-08-26] MEDS ORDERED: clindamycin 600mg/D5W 50ml 50 ML IV ONE (01:20)
[2019-08-26] MEDS ORDERED: normal saline 1000ML IV soln IV ONE (01:20)
[2019-08-26] MEDS ORDERED: ibuprofen 200mg tablet PO ONE (01:25)
[2019-08-26 02:04] LABS: BASOPHILS # (AUTO) 0.1 X10'3 (0-0.2); BASOPHILS % (AUTO) 0.7 % (0-1); EOSINOPHILS # (AUTO) 0.1 X10'3 (0-0.9); HEMOGLOBIN 10.9 g/dl (14.0-17.9); LYMPHOCYTES # (AUTO) 0.7 X10'3 (1.1-4.8); MEAN PLATELET VOLUME 7.6 FL (7.4-10.4); MONOCYTES # (AUTO) 0.8 X10'3 (0-0.9)
[2019-08-26 02:05] LABS: EOSINOPHILS % (AUTO) 0.7 % (0-6); HEMATOCRIT 30.7 % (42.0-52.0); LYMPHOCYTES % (AUTO) 6.3 % (21-51); MEAN CORPUSCULAR HEMOGLOBIN 31.7 PG (27.0-31.0); MEAN CORPUSCULAR HGB CONC 35.6 g/dL (33.0-36.5); MONOCYTES % (AUTO) 7.4 % (2-12); NEUTROPHILS # (AUTO) 9.4 X10'3 (1.8-7.7); NEUTROPHILS % (AUTO) 84.9 % (42-75); PLATELET COUNT 325 X10'3 (140-440); RED BLOOD COUNT 3.45 X10'6 (4.70-6.10); RED CELL DISTRIBUTION WIDTH 14.7 % (11.5-14.5); WHITE BLOOD COUNT 11.1 X10'3 (4.5-11.0)
[2019-08-26 02:11] LABS: PARTIAL THROMBOPLASTIN TIME 31 SECONDS (22-32)
[2019-08-26 02:18] LABS: ALANINE AMINOTRANSFERASE 19 U/L (12-78); ALBUMIN 2.5 G/DL (3.4-5.0); ALBUMIN/GLOBULIN RATIO 0.4 (1.1-1.5); ALKALINE PHOSPHATASE 59 IU/L (46-116); ANION GAP 5 (8-16); ASPARTATE AMINO TRANSFERASE 20 U/L (10-37); BILIRUBIN,TOTAL 0.5 MG/DL (0.1-1.0); BLOOD UREA NITROGEN 30 MG/DL (7-18); BUN/CREATININE RATIO 14.8 (5.4-32.0); C-REACTIVE PROTEIN 9.37 MG/DL (0.0-0.5); CALCIUM 7.9 MG/DL (8.5-10.1); CHLORIDE 90 MMOL/L (99-107); CREATININE 2.03 MG/DL (0.60-1.10); GLUCOSE 189 MG/DL (70-104); MAGNESIUM 1.7 MG/DL (1.5-2.4); POTASSIUM 3.8 MMOL/L (3.5-5.1); SODIUM 122 MMOL/L (135-145); TOTAL PROTEIN 8.8 G/DL (6.4-8.2); eGFR 34 ML/MIN
[2019-08-26] MEDS ORDERED: CLIN300C56 PO (02:35)
[2019-08-26 03:00] LABS: TOTAL CELLS COUNTED 100
[2019-08-26 03:01] LABS: PLATELET ESTIMATE NORMAL
[2019-08-26 03:06] LABS: CLARITY,URINE CLEAR (Clear); COLOR,URINE YELLOW (Yellow); GLUCOSE, URINE NEGATIVE (Neg); KETONES,URINE NEGATIVE (Neg); LEUKOCYTE ESTERASE ,URINE NEGATIVE (Neg); NITRITES, URINE NEGATIVE (Neg); OCCULT BLOOD,URINE LARGE (Neg); PROTEIN,URINE 100 mg/dl (Neg); UROBILINOGEN,URINE 0.2 E.U/dL (0.2-1.0)
[2019-08-26 03:10] LABS: UA COLLECTION TYPE CLN CATCH MIDSTREAM
[2019-08-26 03:13] LABS: BACTERIA,URINE NONE SEEN /HPF (Neg); SQUAMOUS EPITHELIAL CELL,UR FEW /LPF (FEW); YEAST MANY /HPF (NEGATIVE)
[2019-08-26] MEDS ORDERED: potassium Cl 20 mEq SR tablet PO PRN ×2 (04:10)
[2019-08-26] MEDS ORDERED: glucagon, human recombinant 1mg kit SUBCUT PRN (04:10)
[2019-08-26] MEDS ORDERED: dextrose 50%-water 50ml dispensing syringe IV PRN ×2 (04:10)
[2019-08-26] MEDS ORDERED: HYDROcodone/acetaminophen 5mg/325mg tablet PO PRN (04:10)
[2019-08-26] MEDS ORDERED: acetaminophen 325mg tablet PO PRN ×2 (04:10)
[2019-08-26] MEDS ORDERED: potassium CL 10mEq/100ml bag 100 ML IV PRN ×2 (04:10)
[2019-08-26] MEDS ORDERED: magnesium 4gm in 100ml NS 100 ML IV PRN (04:10)
[2019-08-26] MEDS ORDERED: ondansetron/PF 4mg/2ml inj IV PRN (04:10)
[2019-08-26] MEDS ORDERED: magnesium 2GM in 50ml NS 50 ML IV PRN (04:10)
[2019-08-26] MEDS ORDERED: dextrose ORAL solution 15 GM/59 ML bottle PO PRN ×2 (04:10)
[2019-08-26] MEDS ORDERED: mag hydrox/Alum hydrox/simeth 30ml oral suspension PO PRN (04:10)
[2019-08-26] MEDS ORDERED: MESSAGE TO PHARMACY PO ONE (04:10)
[2019-08-26 04:47] LABS: HEMOGLOBIN A1C 8.6 % (4.5-6.2)
[2019-08-26] MEDS: normal saline 1000ml 1,000 ML IV SCH ×3 (05:00→16:50)
[2019-08-26 05:16] VITALS: BP 131/76
--- NOTE | 2019-08-26 06:36 | NUR ---
Problems reprioritized. Patient report given, questions answered & plan of care reviewed with NIKKI. Addendum: 08/26/19 at 0637 by Ajay Beltre RN Amended: Links added.
--- NOTE | 2019-08-26 06:52 | NUR ---
Patient in room [facility] 351. I have received report from Shen ALDRICH and had the opportunity to ask questions and assume patient care.
[2019-08-26] MEDS ORDERED: MAGNESIUM OXIDE PO SCH (08:00)
[2019-08-26] MEDS ORDERED: enoxaparin 40mg/0.4ml syringe SQ SCH (08:00)
[2019-08-26] MEDS: K and/or MAG REPLACEMENT MC SCH ×2 (08:00→20:00)
[2019-08-26] MEDS: levoFLOXACIN 750MG TABLET PO SCH (09:19)
[2019-08-26] MEDS: buPROPion SR 150mg tablet PO SCH (09:19)
[2019-08-26] MEDS: multivitamins, therapeutics tablet PO SCH (09:19)
[2019-08-26] MEDS: hydrALAZINE 25 MG tablet PO SCH ×3 (09:20→20:01)
[2019-08-26] MEDS: amLODIPine 5mg tablet PO SCH (09:21)
[2019-08-26] MEDS: labetalol 100mg tablet PO SCH ×3 (09:21→21:15)
[2019-08-26] MEDS: gabapentin 300mg capsule PO SCH ×3 (09:22→21:15)
[2019-08-26] MEDS: ROPINIRole 1mg tablet PO SCH ×3 (09:22→21:15)
[2019-08-26] MEDS: furosemide 10 MG/1 ML 10ml inj IV SCH ×2 (09:24→20:00)
[2019-08-26] MEDS: clindamycin 600mg/D5W 50ml 50 ML IV SCH ×3 (09:24→20:00)
[2019-08-26] MEDS: potassium Cl 20 mEq SR tablet PO SCH ×3 (09:44→21:15)
[2019-08-26] MEDS ORDERED: pneumococcal 23-VAL P-sac vacc 25 mcg/0.5ml vial IMVAC ONE (10:00)
[2019-08-26 12:29] VITALS: BP 129/74
[2019-08-26] MEDS: insulin Lispro (HumaLOG) vial - multi-dose SQ SCH (13:29)
[2019-08-26] MEDS: prazosin 1mg capsule PO SCH (13:31)
--- NOTE | 2019-08-26 17:19 | NUR ---
DM consult: Pt admit with sepsis secondary to DM foot ulcer. Current A1c is 8.6, up from 7.5 in March of last year per records. Pt seen at bedside reports his increase in A1c is likely r/t increase in sugar intake however states he tries to keep his CHO intake to around 45 g/meal. Pt reports he has still been taking his DM medications and checking his BG levels routinely and states that he occasionally with attend a DM class. Pt provided with written and verbal protein and DM educations with referral to outpatient CDE course. RD reviewed consistent CHO intake and the role of exercising. All of patient's questions were answered at this time. RD contact information provided. Pt currently on a heart healthy CHO controlled diet documented with 100% PO intake. Pt declines additional protein at lunch and dinner however agrees to double eggs with breakfast, d/w dietary. Informed pt that he may request additional protein with meals if he changes his mind. Pt denies food allergies, difficulty chewing/swallowing, or constipation/diarrhea. [facility] 08/25. Will continue to follow. Recommendations: 1) Continue heart healthy CHO controlled diet 2) Double eggs q breakfast; monitor need for additional protein 3) MVI for wound healing 4) Bowel care PRN 5) Wt per rx Addendum: 08/26/19 at [address] Amended: Links added.
[2019-08-26 20:00] VITALS: BP 117/68
[2019-08-26] MEDS: lactobacillus rhamnosus 10,000 MMU CELLS/CAPSULE PO SCH (20:01)
[2019-08-26] MEDS ORDERED: rivaroxaban 20mg tablet PO SCH (21:00)
[2019-08-26] MEDS: tamsulosin 0.4mg capsule PO SCH (21:15)
[2019-08-26] MEDS: montelukast 10mg tablet PO SCH (21:15)
[2019-08-26] MEDS: insulin glargine (Lantus) pen - multi-dose SQ SCH (21:25)
[2019-08-27] VITALS (18 sets, daily range): BP systolic 110–151; BP diastolic 59–79
[2019-08-27] MEDS: hydrALAZINE 25 MG tablet PO SCH ×4 (02:00→20:53)
[2019-08-27] MEDS: clindamycin 600mg/D5W 50ml 50 ML IV SCH ×4 (02:18→20:51)
[2019-08-27 04:59] LABS: BASOPHILS # (AUTO) 0.1 X10'3 (0-0.2); BASOPHILS % (AUTO) 1.2 % (0-1); EOSINOPHILS # (AUTO) 0.2 X10'3 (0-0.9); EOSINOPHILS % (AUTO) 3.6 % (0-6); HEMATOCRIT 29.5 % (42.0-52.0); HEMOGLOBIN 10.5 g/dl (14.0-17.9); LYMPHOCYTES % (AUTO) 15.9 % (21-51); MEAN CORPUSCULAR HGB CONC 35.7 g/dL (33.0-36.5); MEAN CORPUSCULAR VOLUME 89.7 FL (78-98); MEAN PLATELET VOLUME 7.3 FL (7.4-10.4); MONOCYTES # (AUTO) 0.9 X10'3 (0-0.9); MONOCYTES % (AUTO) 14.4 % (2-12); NEUTROPHILS # (AUTO) 3.9 X10'3 (1.8-7.7); NEUTROPHILS % (AUTO) 64.9 % (42-75); PLATELET COUNT 324 X10'3 (140-440); RED BLOOD COUNT 3.29 X10'6 (4.70-6.10)
[2019-08-27 05:21] LABS: ALANINE AMINOTRANSFERASE 16 U/L (12-78); ALBUMIN 2.3 G/DL (3.4-5.0); ALBUMIN/GLOBULIN RATIO 0.4 (1.1-1.5); ALKALINE PHOSPHATASE 64 IU/L (46-116); ANION GAP 8 (8-16); ASPARTATE AMINO TRANSFERASE 18 U/L (10-37); BILIRUBIN,TOTAL 0.3 MG/DL (0.1-1.0); BLOOD UREA NITROGEN 25 MG/DL (7-18); BUN/CREATININE RATIO 14.1 (5.4-32.0); CALCIUM 8.3 MG/DL (8.5-10.1); CHLORIDE 98 MMOL/L (99-107); CREATININE 1.77 MG/DL (0.60-1.10); GLUCOSE 209 MG/DL (70-104); POTASSIUM 3.7 MMOL/L (3.5-5.1); SODIUM 133 MMOL/L (135-145); TOTAL CARBON DIOXIDE 27.1 MMOL/L (24-32); TOTAL PROTEIN 8.4 G/DL (6.4-8.2); eGFR 40 ML/MIN
--- NOTE | 2019-08-27 06:58 | NUR ---
Problems reprioritized. Patient report given, questions answered & plan of care reviewed with DANDRE. Addendum: 08/27/19 at 0659 by Ajay Beltre RN Amended: Links added.
--- NOTE | 2019-08-27 07:24 | NUR ---
Patient in room [facility] 351. I have received report from Shen ALDRICH and had the opportunity to ask questions and assume patient care.
[2019-08-27] MEDS: furosemide 10 MG/1 ML 10ml inj IV SCH ×2 (08:00→20:53)
[2019-08-27] MEDS: labetalol 100mg tablet PO SCH ×3 (08:00→21:00)
[2019-08-27] MEDS: K and/or MAG REPLACEMENT MC SCH ×2 (08:00→20:00)
[2019-08-27] MEDS: prazosin 1mg capsule PO SCH (08:00)
[2019-08-27] MEDS: amLODIPine 5mg tablet PO SCH (08:00)
--- NOTE | 2019-08-27 08:25 | NUR ---
Called Recovery room regarding HOLDING meds for Pt for surgery. Dr Aden Ordered to HOLD lasix, and ALL HTN meds including Labetalol.
[2019-08-27] MEDS: normal saline 1000ml 1,000 ML IV SCH ×2 (08:31→20:10)
[2019-08-27] MEDS: gabapentin 300mg capsule PO SCH ×3 (08:32→22:03)
[2019-08-27] MEDS: lactobacillus rhamnosus 10,000 MMU CELLS/CAPSULE PO SCH ×2 (08:32→20:51)
[2019-08-27] MEDS: ROPINIRole 1mg tablet PO SCH ×3 (08:32→20:51)
[2019-08-27] MEDS: buPROPion SR 150mg tablet PO SCH (08:32)
[2019-08-27] MEDS: potassium Cl 20 mEq SR tablet PO SCH ×3 (08:33→20:52)
[2019-08-27] MEDS: multivitamins, therapeutics tablet PO SCH (08:33)
[2019-08-27] MEDS ORDERED: pneumococcal 23-VAL P-sac vacc 25 mcg/0.5ml vial IMVAC ONE (10:00)
[2019-08-27] MEDS ORDERED: ringers solution, lacted 1,000 ML IV SCH (11:33)
[2019-08-27] MEDS ORDERED: hydrALAZINE 20mg/ml inj. IV PRN (11:35)
[2019-08-27] MEDS ORDERED: morphine 4 MG/ML inj SYRINge IV PRN (11:35)
[2019-08-27] MEDS ORDERED: morphine 2 MG/ML inj. syringe IV PRN (11:35)
[2019-08-27] MEDS ORDERED: ondansetron/PF 4mg/2ml inj IV PRN (11:35)
[2019-08-27] MEDS ORDERED: fentaNYL/PF 50MCG/1 ML 2ML syringe IV PRN (11:35)
[2019-08-27] MEDS ORDERED: labetalol 20mg/4ml (5mg/ml) syringe IV PRN (11:35)
[2019-08-27] MEDS ORDERED: fentaNYL/PF 50MCG/1 ML 2ML syringe ONE (13:45)
[2019-08-27] MEDS ORDERED: MIDAZolam 1mg/ml 10ml vial ONE (13:46)
[2019-08-27] MEDS ORDERED: sevoflurane 250ml liquid IH ONE (13:54)
[2019-08-27] MEDS: fentaNYL/PF 50MCG/1 ML 2ML syringe IV PRN ×2 (15:59→16:12)
--- NOTE | 2019-08-27 16:25 | NUR ---
v/S WNL, NEUROVASCULAR CHECKS INTACT, DRESSING TO LEFT BKA STUMP CDI, 20G PIV RUE. .PATIENT RETURNED TO ROOM ON SURGICAL AND HOOKED UP TO MONITORS IN ROOM AND REPORT GIVEN TO [employer] EXECUTIVE DIRECTOR WHO HAS TAKEN OVER PATIENT CARE.
[2019-08-27] MEDS: morphine 2 MG/ML inj. syringe IV PRN (17:35)
--- NOTE | 2019-08-27 18:30 | NUR ---
Patient in room [facility] 350. I have received report from VALDEMAR Marquis and had the opportunity to ask questions and assume patient care. Addendum: 08/27/19 at 1852 by Timothy Marcano RN Amended: Links added.
--- NOTE | 2019-08-27 18:48 | NUR ---
Problems reprioritized. Patient report given, questions answered & plan of care reviewed with Nessa ALDRICH.
[2019-08-27] MEDS: insulin Lispro (HumaLOG) vial - multi-dose SQ SCH (18:49)
[2019-08-27] MEDS: tamsulosin 0.4mg capsule PO SCH (20:51)
[2019-08-27] MEDS: montelukast 10mg tablet PO SCH (20:52)
[2019-08-27] MEDS: insulin glargine (Lantus) pen - multi-dose SQ SCH (21:10)
[2019-08-27] MEDS: HYDROcodone/acetaminophen 10/325mg tab PO PRN (22:04)
--- NOTE | 2019-08-27 22:10 | NUR ---
Pt turning self, refuses to have linen changed, or sacrum assessed, states it is "fine". dried urine on bed. pt refuses to have changed at this time, pain medication given will reassess. Addendum: 08/27/19 at 2211 by Timothy Marcano RN Amended: Links added.
[2019-08-28] VITALS: BP 137/79
[2019-08-28] MEDS: morphine 2 MG/ML inj. syringe IV PRN (00:25)
[2019-08-28] MEDS: hydrALAZINE 25 MG tablet PO SCH ×4 (01:28→19:20)
[2019-08-28] MEDS: clindamycin 600mg/D5W 50ml 50 ML IV SCH ×4 (01:29→19:30)
[2019-08-28] MEDS: HYDROcodone/acetaminophen 10/325mg tab PO PRN ×4 (04:33→19:21)
[2019-08-28] MEDS: normal saline 1000ml 1,000 ML IV SCH ×2 (04:33→15:24)
--- NOTE | 2019-08-28 05:00 | NUR ---
princess quiñones from left bka, mostly serous and small amt sang. elevated on x2 pillows pt states he has been turning self freq, and jonelle positioned, still refusing to have linen changed. Addendum: 08/28/19 at 0503 by Timothy Marcano RN Amended: Links added.
[2019-08-28 05:44] LABS: ALANINE AMINOTRANSFERASE 15 U/L (12-78); ALBUMIN 2.3 G/DL (3.4-5.0); ALBUMIN/GLOBULIN RATIO 0.4 (1.1-1.5); ALKALINE PHOSPHATASE 60 IU/L (46-116); ANION GAP 7 (8-16); BILIRUBIN,TOTAL 0.4 MG/DL (0.1-1.0); BLOOD UREA NITROGEN 20 MG/DL (7-18); BUN/CREATININE RATIO 13.4 (5.4-32.0); CALCIUM 8.2 MG/DL (8.5-10.1); CHLORIDE 99 MMOL/L (99-107); CREATININE 1.49 MG/DL (0.60-1.10); GLUCOSE 155 MG/DL (70-104); MAGNESIUM 1.9 MG/DL (1.5-2.4); SODIUM 131 MMOL/L (135-145); TOTAL CARBON DIOXIDE 24.6 MMOL/L (24-32); TOTAL PROTEIN 8.4 G/DL (6.4-8.2); eGFR 49 ML/MIN
[2019-08-28 05:54] LABS: ASPARTATE AMINO TRANSFERASE 43 U/L (10-37); POTASSIUM 4.2 MMOL/L (3.5-5.1)
--- NOTE | 2019-08-28 06:27 | NUR ---
Problems reprioritized. Patient report given, questions answered & plan of care reviewed with VALDEMAR Miranda. Addendum: 08/28/19 at 0627 by Timothy Marcano RN Amended: Links added.
--- NOTE | 2019-08-28 06:30 | NUR ---
Patient in room [facility] 350. I have received report from Nessa ALDRICH and had the opportunity to ask questions and assume patient care.
[2019-08-28 08:00] VITALS: BP 193/73
[2019-08-28] MEDS: K and/or MAG REPLACEMENT MC SCH ×2 (08:00→20:00)
[2019-08-28 08:04] LABS: BASOPHILS # (AUTO) 0.1 X10'3 (0-0.2); BASOPHILS % (AUTO) 1.1 % (0-1); EOSINOPHILS # (AUTO) 0.3 X10'3 (0-0.9); EOSINOPHILS % (AUTO) 4.7 % (0-6); HEMATOCRIT 28.9 % (42.0-52.0); HEMOGLOBIN 10.2 g/dl (14.0-17.9); LYMPHOCYTES # (AUTO) 0.9 X10'3 (1.1-4.8); LYMPHOCYTES % (AUTO) 12.3 % (21-51); MEAN CORPUSCULAR HEMOGLOBIN 31.8 PG (27.0-31.0); MEAN CORPUSCULAR HGB CONC 35.2 g/dL (33.0-36.5); MEAN CORPUSCULAR VOLUME 90.3 FL (78-98); MEAN PLATELET VOLUME 7.2 FL (7.4-10.4); MONOCYTES # (AUTO) 0.9 X10'3 (0-0.9); MONOCYTES % (AUTO) 12.2 % (2-12); NEUTROPHILS % (AUTO) 69.7 % (42-75); PLATELET COUNT 349 X10'3 (140-440); RED CELL DISTRIBUTION WIDTH 15.2 % (11.5-14.5); WHITE BLOOD COUNT 7.2 X10'3 (4.5-11.0)
[2019-08-28] MEDS: potassium Cl 20 mEq SR tablet PO SCH ×3 (08:34→20:54)
[2019-08-28] MEDS: levoFLOXACIN 750MG TABLET PO SCH (08:34)
[2019-08-28] MEDS: lactobacillus rhamnosus 10,000 MMU CELLS/CAPSULE PO SCH ×2 (08:34→19:20)
[2019-08-28] MEDS: amLODIPine 5mg tablet PO SCH (08:34)
[2019-08-28] MEDS: ROPINIRole 1mg tablet PO SCH ×3 (08:34→20:54)
[2019-08-28] MEDS: buPROPion SR 150mg tablet PO SCH ×2 (08:34→19:20)
[2019-08-28] MEDS: labetalol 100mg tablet PO SCH ×3 (08:34→20:54)
[2019-08-28] MEDS: multivitamins, therapeutics tablet PO SCH (08:35)
[2019-08-28] MEDS: gabapentin 300mg capsule PO SCH ×3 (08:35→20:54)
[2019-08-28] MEDS: prazosin 1mg capsule PO SCH (08:35)
[2019-08-28] MEDS: furosemide 10 MG/1 ML 10ml inj IV SCH ×2 (08:38→19:23)
[2019-08-28] MEDS: insulin Lispro (HumaLOG) vial - multi-dose SQ SCH ×3 (08:51→19:01)
[2019-08-28 11:00] VITALS: BP 135/65
[2019-08-28] MEDS: magnesium hydroxide 30ml (MOM) UD suspension PO PRN (15:25)
--- NOTE | 2019-08-28 18:17 | NUR ---
Problems reprioritized. Patient report given, questions answered & plan of care reviewed with Katy ALDRICH.
--- NOTE | 2019-08-28 18:20 | NUR ---
Patient in room [facility] 350. I have received report from Ruth ALDRICH and had the opportunity to ask questions and assume patient care.
[2019-08-28 19:15] VITALS: BP 131/71
[2019-08-28] MEDS ORDERED: rivaroxaban 20mg tablet PO SCH (20:45)
[2019-08-28] MEDS: tamsulosin 0.4mg capsule PO SCH (20:53)
[2019-08-28] MEDS: montelukast 10mg tablet PO SCH (20:54)
[2019-08-28 20:58] VITALS: BP 129/69
[2019-08-28] MEDS: insulin glargine (Lantus) pen - multi-dose SQ SCH (21:03)
[2019-08-29] VITALS: BP 131/68
[2019-08-29] MEDS: HYDROcodone/acetaminophen 10/325mg tab PO PRN ×3 (00:42→11:36)
[2019-08-29] MEDS: normal saline 1000ml 1,000 ML IV SCH ×2 (03:13→12:10)
[2019-08-29] MEDS: hydrALAZINE 25 MG tablet PO SCH ×2 (03:14→07:57)
[2019-08-29] MEDS: clindamycin 600mg/D5W 50ml 50 ML IV SCH ×2 (03:14→07:59)
[2019-08-29 03:16] VITALS: BP 127/82
[2019-08-29 06:20] LABS: BASOPHILS # (AUTO) 0.1 X10'3 (0-0.2); BASOPHILS % (AUTO) 1.1 % (0-1); EOSINOPHILS # (AUTO) 0.3 X10'3 (0-0.9); EOSINOPHILS % (AUTO) 4.3 % (0-6); HEMATOCRIT 27.2 % (42.0-52.0); HEMOGLOBIN 9.7 g/dl (14.0-17.9); LYMPHOCYTES # (AUTO) 1.1 X10'3 (1.1-4.8); LYMPHOCYTES % (AUTO) 14.5 % (21-51); MEAN CORPUSCULAR HGB CONC 35.5 g/dL (33.0-36.5); MEAN CORPUSCULAR VOLUME 90.2 FL (78-98); MEAN PLATELET VOLUME 7.3 FL (7.4-10.4); MONOCYTES # (AUTO) 0.8 X10'3 (0-0.9); MONOCYTES % (AUTO) 10.5 % (2-12); NEUTROPHILS # (AUTO) 5.5 X10'3 (1.8-7.7); NEUTROPHILS % (AUTO) 69.6 % (42-75); PLATELET COUNT 361 X10'3 (140-440); RED BLOOD COUNT 3.02 X10'6 (4.70-6.10); WHITE BLOOD COUNT 7.9 X10'3 (4.5-11.0)
[2019-08-29 06:37] LABS: ALANINE AMINOTRANSFERASE 18 U/L (12-78); ALBUMIN 2.3 G/DL (3.4-5.0); ALBUMIN/GLOBULIN RATIO 0.4 (1.1-1.5); ALKALINE PHOSPHATASE 63 IU/L (46-116); ANION GAP 9 (8-16); ASPARTATE AMINO TRANSFERASE 38 U/L (10-37); BILIRUBIN,TOTAL 0.4 MG/DL (0.1-1.0); BLOOD UREA NITROGEN 18 MG/DL (7-18); BUN/CREATININE RATIO 11.5 (5.4-32.0); CALCIUM 8.2 MG/DL (8.5-10.1); CHLORIDE 99 MMOL/L (99-107); CREATININE 1.57 MG/DL (0.60-1.10); GLUCOSE 144 MG/DL (70-104); MAGNESIUM 1.9 MG/DL (1.5-2.4); POTASSIUM 3.9 MMOL/L (3.5-5.1); SODIUM 134 MMOL/L (135-145); TOTAL CARBON DIOXIDE 25.6 MMOL/L (24-32); eGFR 46 ML/MIN
--- NOTE | 2019-08-29 06:44 | NUR ---
Problems reprioritized. Patient report given, questions answered & plan of care reviewed with Nakia ALDRICH.
--- NOTE | 2019-08-29 06:54 | NUR ---
Patient in room [facility] 350. I have received report from Allison ALDRICH and had the opportunity to ask questions and assume patient care.
[2019-08-29] MEDS: furosemide 10 MG/1 ML 10ml inj IV SCH (07:57)
[2019-08-29] MEDS: labetalol 100mg tablet PO SCH (07:58)
[2019-08-29] MEDS: ROPINIRole 1mg tablet PO SCH (07:58)
[2019-08-29] MEDS: potassium Cl 20 mEq SR tablet PO SCH (07:58)
[2019-08-29] MEDS: prazosin 1mg capsule PO SCH (07:58)
[2019-08-29] MEDS: multivitamins, therapeutics tablet PO SCH (07:58)
[2019-08-29] MEDS: gabapentin 300mg capsule PO SCH (07:58)
[2019-08-29] MEDS: lactobacillus rhamnosus 10,000 MMU CELLS/CAPSULE PO SCH (07:58)
[2019-08-29] MEDS: amLODIPine 5mg tablet PO SCH (07:59)
[2019-08-29] MEDS: buPROPion SR 150mg tablet PO SCH (07:59)
[2019-08-29] MEDS: K and/or MAG REPLACEMENT MC SCH (08:00)
[2019-08-29] MEDS: insulin Lispro (HumaLOG) vial - multi-dose SQ SCH (08:16)
[2019-08-29] MEDS: magnesium hydroxide 30ml (MOM) UD suspension PO PRN (08:25)
[2019-08-29] MEDS ORDERED: pneumococcal 23-VAL P-sac vacc 25 mcg/0.5ml vial IMVAC ONE (10:00)
[2019-08-29 11:00] VITALS: BP 123/62
--- NOTE | 2019-08-29 12:00 | NUR ---
Dressing changed per Dr Sue Iodine cleanse, neosporin xeroform gauze 4x4, Kerlix and julian wrap pauline intact no drainage and no reddness noted
--- NOTE | 2019-08-29 13:00 | NUR ---
Called Report to [facility]ACKER at [facility] all questions answered. Patients IV dc'd cannula intact patient states he has all his belongings. Patient take via gurney by Zina Cargo.
== END 2019-08-29 12:55 | DRG 853 ==
LOC: ER 01:14 → ED HOLD 04:10 → UNDOADMIN 04:35 → ED HOLD 04:57 → SUR 3N 04:57
PROVIDERS: ADMIT Family Medicine; ATTEND Internal Medicine
PROC: CW1D1ZZ Planar Nuclear Medicine Imaging of Lower Extremity using Technetium 99m (Tc-99m) (ICD-10-PCS; 2019-08-26)
PROC: 0Y6J0Z1 Detachment at Left Lower Leg, High, Open Approach (ICD-10-PCS; principal; 2019-08-27 13:54)
PROC: 3E0234Z Introduction of Serum, Toxoid and Vaccine into Muscle, Percutaneous Approach (ICD-10-PCS; 2019-08-29)
DX: A41.9 Sepsis, unspecified organism (principal); E43 Unspecified severe protein-calorie malnutrition; E87.1 Hypo-osmolality and hyponatremia; I48.20 Chronic atrial fibrillation, unspecified; M86.172 Other acute osteomyelitis, left ankle and foot; I13.0 Hypertensive heart and chronic kidney disease with heart failure and stage 1 through stage 4 chronic kidney disease, or unspecified chronic kidney disease; L03.116 Cellulitis of left lower limb; Z68.41 Body mass index [BMI] 40.0-44.9, adult; I12.9 Hypertensive chronic kidney disease with stage 1 through stage 4 chronic kidney disease, or unspecified chronic kidney disease; E11.22 Type 2 diabetes mellitus with diabetic chronic kidney disease; E11.621 Type 2 diabetes mellitus with foot ulcer; L97.529 Non-pressure chronic ulcer of other part of left foot with unspecified severity; G47.30 Sleep apnea, unspecified; E66.01 Morbid (severe) obesity due to excess calories; E11.51 Type 2 diabetes mellitus with diabetic peripheral angiopathy without gangrene; E11.42 Type 2 diabetes mellitus with diabetic polyneuropathy; E11.65 Type 2 diabetes mellitus with hyperglycemia; E11.69 Type 2 diabetes mellitus with other specified complication; F32.9 Major depressive disorder, single episode, unspecified; I50.9 Heart failure, unspecified; N18.3 Chronic kidney disease, stage 3 (moderate); Z79.4 Long term (current) use of insulin; Z79.01 Long term (current) use of anticoagulants; Z89.511 Acquired absence of right leg below knee; Z23 Encounter for immunization; Z88.0 Allergy status to penicillin; Z88.8 Allergy status to other drugs, medicaments and biological substances; Z89.412 Acquired absence of left great toe; Z79.899 Other long term (current) drug therapy
CPT/HCPCS: 36415; 71045; 73630; 73700; 78315; 80053; 81001; 82948; 83036; 83605; 83735; 84145; 85025; 85610; 85651; 85730; 86140; 87040; 87070; 87077; 87081; 87088; 87186; 88305; 88311; 93005; 96365; 97116; 97161; 97530; 99285; A4618; A6222; A6446; A6449; A7000; A9503; G0378; J1650; J1815; J1940; J2250; J2270; J3010; J3490; J7030